=== PATIENT | female | born 1970 | race Caucasian/White ===

== ENCOUNTER 2016-11-04 10:05 | Emergency (ER) | payer OTHER, MEDICARE ==
[2016-11-04 10:49] LABS: BASOPHIL 0.4 % (0-2); EOSINOPHIL 4.3 % (0-5); HGB 15.6 g/dl (12.5-16.0); LYMPHOCYTE 31.3 % (15-48); MCH 28.5 pg (25.0-31.0); MCHC 35.5 g/dL (32.0-36.0); MCV 80.3 fL (78.0-100.0); MPV 9.3 fL (6.0-9.5); PLT 340 K/uL (150-400); RBC 5.48 M/uL (4.20-5.40); RDW 12.1 % (11.5-14.0); WBC 8.5 K/uL (4.0-10.5)
[2016-11-04 11:14] LABS: INR 0.94 (0.9-1.2); PROTHROMBIN TIME 12.2 SECONDS (11.7-14.0); PTT 25.9 SECONDS (23.2-31.4)
[2016-11-04 11:22] LABS: ALBUMIN 4.2 g/dL (3.5-5.0); BILIRUBIN - TOTAL 0.2 mg/dL (0.1-1.0); CREATININE 0.8 mg/dL (0.5-1.0); GLOBULIN (CALCULATION) 3.3 g/dL (2.2-4.2); POTASSIUM 4.2 mmol/L (3.5-5.1); TOTAL PROTEIN 7.5 g/dL (6.4-8.3)
== END 2016-11-04 12:14 | disposition home or self-care (01) ==
LOC: FER 10:05
PROVIDERS: Emergency Medicine
DX: K25.9 Gastric ulcer, unspecified as acute or chronic, without hemorrhage or perforation (principal); I10 Essential (primary) hypertension; F17.210 Nicotine dependence, cigarettes, uncomplicated; Z79.899 Other long term (current) drug therapy; Z87.19 Personal history of other diseases of the digestive system; Z90.49 Acquired absence of other specified parts of digestive tract
CPT/HCPCS: 36415; 74022; 80053; 83690; 85025; 85610; 85730; 99284

== ENCOUNTER 2020-11-25 18:43 | Emergency (ER) | payer MEDICARE ==
[~2020-11-25 18:43] MED LIST: IBUPROFEN800 MG PO; LISINOPRIL-HCT1 EAC1 PO; NAPROXEN500 MG PO; NORVASC5 MG PO; PREDNISONE 20MG20 MG PO; PRILOSEC20 MG PO; PRINIVIL20 MG PO
[2021-01-10] MEDS ORDERED: VRAYLAR1.5 MG PO (11:03)
[2021-01-10] MEDS ORDERED: LAMICTAL200 MG PO (11:04)
[2021-01-10] MEDS ORDERED: HCTZ25 MG PO (11:04)
[2021-01-10] MEDS ORDERED: CLONIDINE HCL0.1 MG PO (11:04)
[2021-01-10] MEDS ORDERED: ZESTRIL30 MG PO (11:04)
[2021-01-10] MEDS ORDERED: SYMBICORT 80-10.2 GM INH (11:05)
[2021-01-10] MEDS ORDERED: VENTOLIN HFA IN18 GM INH (11:05)
[2021-01-10] MEDS ORDERED: MOBIC15 MG PO (11:05)
[2021-01-10] MEDS ORDERED: PROTONIX 40MG T40 MG PO (11:05)
[2021-01-10] MEDS ORDERED: CHANTIX1 MG PO (11:05)
[2021-01-15] MEDS ORDERED: GABAPENTIN300 MG PO (09:46)
[2021-01-15] MEDS ORDERED: [UNRECOGNIZED DRUG - OTHER] PO (09:48)
[2021-01-15] MEDS ORDERED: PERCOCET 7.5/321 TAB PO (14:27)
== END 2020-11-25 21:37 | disposition home or self-care (01) ==
LOC: FER 18:43
DX: S83.92XA Sprain of unspecified site of left knee, initial encounter (principal); M25.462 Effusion, left knee; I10 Essential (primary) hypertension; J45.909 Unspecified asthma, uncomplicated; F17.210 Nicotine dependence, cigarettes, uncomplicated; Z87.39 Personal history of other diseases of the musculoskeletal system and connective tissue; Z79.899 Other long term (current) drug therapy; W19.XXXA Unspecified fall, initial encounter; Y92.009 Unspecified place in unspecified non-institutional (private) residence as the place of occurrence of the external cause
CPT/HCPCS: 73564; 96372; J1170; J1885

== ENCOUNTER 2020-12-07 10:20 | Emergency (ER) | payer MEDICARE ==
[2020-12-07] MEDS ORDERED: HYDROCODON-ACE1 EAC6 PO (13:42)
[2021-01-10] MEDS ORDERED: VRAYLAR1.5 MG PO (11:03)
[2021-01-10] MEDS ORDERED: ZESTRIL30 MG PO (11:04)
[2021-01-10] MEDS ORDERED: LAMICTAL200 MG PO (11:04)
[2021-01-10] MEDS ORDERED: CLONIDINE HCL0.1 MG PO (11:04)
[2021-01-10] MEDS ORDERED: HCTZ25 MG PO (11:04)
[2021-01-10] MEDS ORDERED: SYMBICORT 80-10.2 GM INH (11:05)
[2021-01-10] MEDS ORDERED: PROTONIX 40MG T40 MG PO (11:05)
[2021-01-10] MEDS ORDERED: CHANTIX1 MG PO (11:05)
[2021-01-10] MEDS ORDERED: MOBIC15 MG PO (11:05)
[2021-01-10] MEDS ORDERED: VENTOLIN HFA IN18 GM INH (11:05)
[2021-01-15] MEDS ORDERED: GABAPENTIN300 MG PO (09:46)
[2021-01-15] MEDS ORDERED: [UNRECOGNIZED DRUG - OTHER] PO (09:48)
[2021-01-15] MEDS ORDERED: PERCOCET 7.5/321 TAB PO (14:27)
== END 2020-12-07 13:59 | disposition home or self-care (01) ==
LOC: FER 10:20
DX: S83.512A Sprain of anterior cruciate ligament of left knee, initial encounter (principal); F17.210 Nicotine dependence, cigarettes, uncomplicated; W19.XXXA Unspecified fall, initial encounter; Y92.009 Unspecified place in unspecified non-institutional (private) residence as the place of occurrence of the external cause
CPT/HCPCS: 73560; 96372; J1170; J1885; J2550

== ENCOUNTER → 2021-01-15 | Day surgery (SDC) | payer MEDICARE ==
[~2021-01-15] VITALS: Ht 157.5 cm; Wt 85.7 kg
[~2021-01-15] MED LIST changes: +CHANTIX1 MG PO; +CLONIDINE HCL0.1 MG PO; +GABAPENTIN300 MG PO; +HCTZ25 MG PO; +HYDROCODON-ACE1 EAC6 PO; +LAMICTAL200 MG PO; +MOBIC15 MG PO; +PERCOCET 7.5/321 TAB PO; +PROTONIX 40MG T40 MG PO; +SYMBICORT 80-10.2 GM INH; +VENTOLIN HFA IN18 GM INH; +VRAYLAR1.5 MG PO; +ZESTRIL30 MG PO; +[UNRECOGNIZED DRUG - OTHER] PO
== END | disposition home or self-care (01) ==
LOC: FAS 09:21
DX: M25.062 Hemarthrosis, left knee (principal); S83.512A Sprain of anterior cruciate ligament of left knee, initial encounter; M94.262 Chondromalacia, left knee; J44.9 Chronic obstructive pulmonary disease, unspecified; I10 Essential (primary) hypertension; F31.9 Bipolar disorder, unspecified; G43.909 Migraine, unspecified, not intractable, without status migrainosus; K21.9 Gastro-esophageal reflux disease without esophagitis; F43.10 Post-traumatic stress disorder, unspecified; F41.9 Anxiety disorder, unspecified; F17.210 Nicotine dependence, cigarettes, uncomplicated; Z79.899 Other long term (current) drug therapy; W19.XXXA Unspecified fall, initial encounter
CPT/HCPCS: 93005; C1713; C1762; J0690; J1100; J1170; J2250; J2405; J2704; J2795; J3010; J7120

== ENCOUNTER 2021-03-28 08:50 | Emergency (ER) | payer MEDICARE ==
[2021-03-28 10:10] LABS: CORONAVIRUS 2019 SARS-COV-2 NEGATIVE (NEGATIVE); INFLUENZA A NAA NEGATIVE (NEGATIVE)
[2021-03-28] MEDS ORDERED: VIBRAMYCIN100 MG PO (10:41)
[2021-03-28] MEDS ORDERED: MEDROL 4MG DOSEP4 MG PO (10:41)
[2021-03-28] MEDS ORDERED: VENTOLIN HFA18 GM INH (10:41)
== END 2021-03-28 11:04 | disposition home or self-care (01) ==
LOC: FER 08:50
PROVIDERS: Emergency Medicine
DX: Z20.822 Contact with and (suspected) exposure to COVID-19 (principal); Z79.899 Other long term (current) drug therapy
CPT/HCPCS: 99283; U0002

== ENCOUNTER 2021-09-29 11:37 | Emergency (ER) | payer MEDICARE ==
[~2021-09-29 11:37] MED LIST changes: +MEDROL 4MG DOSEP4 MG PO; +VENTOLIN HFA18 GM INH; +VIBRAMYCIN100 MG PO
[2021-09-29] MEDS ORDERED: ELIMITE60 GM TD (12:51)
== END 2021-09-29 13:00 | disposition home or self-care (01) ==
LOC: FER 11:37
DX: B86 Scabies (principal); I10 Essential (primary) hypertension
CPT/HCPCS: 99282

== ENCOUNTER 2022-01-10 12:27 | Emergency (ER) | payer MEDICARE ==
[~2022-01-10 12:27] MED LIST changes: +ELIMITE60 GM TD
[2022-01-10 13:39] LABS: BASOPHIL 0.4 % (0-2); EOSINOPHIL 0.5 % (0-5); HCT 46.1 % (37.0-47.0); HGB 15.3 g/dl (12.5-16.0); MCH 27.6 pg (25.0-31.0); MCHC 33.2 g/dL (32.0-36.0); MCV 83.2 fL (78.0-100.0); MONOCYTE 3.7 % (0-12); MPV 9.4 fL (6.0-9.5); NEUTROPHIL 80.9 % (41-80); NRBC 0; PLT 325 K/uL (150-400); RBC 5.54 M/uL (4.20-5.40); RDW 12.6 % (11.5-14.0)
[2022-01-10 13:57] LABS: ALBUMIN 3.6 g/dL (3.4-5.0); BILIRUBIN - TOTAL 0.4 mg/dL (0.2-1.0); BUN/CREAT RATIO (CALC) 14.1 RATIO; CREATININE 0.71 mg/dL (0.51-0.95); GLOBULIN (CALCULATION) 4.5 g/dL; POTASSIUM 3.9 mmol/L (3.5-5.1); TOTAL PROTEIN 8.1 g/dL (6.4-8.2)
[2022-01-10] MEDS ORDERED: ONDANSETRON ODT4 MG PO (16:13)
[2022-01-10] MEDS ORDERED: ANTIVERT25 MG PO (16:13)
== END 2022-01-10 16:36 | disposition home or self-care (01) ==
LOC: FER 12:27
PROVIDERS: Emergency Medicine
DX: H83.09 Labyrinthitis, unspecified ear (principal); I10 Essential (primary) hypertension; F17.210 Nicotine dependence, cigarettes, uncomplicated
CPT/HCPCS: 36415; 70450; 80053; 85025; J2405; J3360

== ENCOUNTER → 2022-04-25 | Day surgery (SDC) | payer MEDICARE ==
[~2022-04-25] VITALS: Ht 157.5 cm; Wt 91.2 kg
[~2022-04-25] MED LIST changes: +AMBIEN5 MG PO; +ANTIVERT25 MG PO; +CLONAZEPAM 1MG T1 MG PO; +COLESTID1 GM PO; +LIPITOR 10MG TA10 MG PO; +LOPRESSOR50 MG PO; +MINIPRESS1 MG PO; +NORCO 5/3251 EACH PO; +ONDANSETRON ODT4 MG PO; +SINGULAIR10 MG PO; +VIIBRYD40 MG PO; -VRAYLAR1.5 MG PO; +VRAYLAR4.5 MG PO; -ZESTRIL30 MG PO; +ZESTRIL40 MG PO; -[UNRECOGNIZED DRUG - OTHER] PO
== END | disposition home or self-care (01) ==
LOC: FAS 07:44
DX: K57.30 Diverticulosis of large intestine without perforation or abscess without bleeding (principal); K31.9 Disease of stomach and duodenum, unspecified; K21.9 Gastro-esophageal reflux disease without esophagitis; I10 Essential (primary) hypertension; J45.909 Unspecified asthma, uncomplicated; E78.5 Hyperlipidemia, unspecified; Z86.010 Personal history of colon polyps
CPT/HCPCS: J0360; J2250; J2704; J7120